=== PATIENT | male | born 1930 | race Caucasian/White ===

== ENCOUNTER 2017-06-09 13:08 | Day surgery (SDC) | payer MEDICARE ==
[~2017-06-09] VITALS: Ht 172.7 cm; Wt 80.7 kg
[2017-06-09 13:31] VITALS: BP 132/83; PULSE 69; TEMP 97.3
[2017-06-09] MEDS ORDERED: PRAVACHOL10 MG PO (13:34)
[2017-06-09] MEDS ORDERED: SYNTHROID0.05 MG/TA PO (13:34)
[2017-06-09] MEDS ORDERED: MULTI VITAMINS1 TAB PO (13:35)
[2017-06-09] MEDS ORDERED: PRIL40 PO (13:35)
[2017-06-09] MEDS ORDERED: HCTZ 25MG TAB25 MG PO (13:35)
[2017-06-09] MEDS ORDERED: OMEGA-3 1000 MG1 CAP PO (13:35)
[2017-06-09 14:40] VITALS: BP 134/96; PULSE 78; TEMP 98.5
[2017-06-09 14:55] VITALS: BP 129/85; PULSE 74
[2017-06-09 15:10] VITALS: BP 144/83; PULSE 72
== END 2017-06-09 15:39 | disposition home or self-care (01) ==
LOC: SDCO 13:08
DX: K22.2 Esophageal obstruction (principal); K44.9 Diaphragmatic hernia without obstruction or gangrene; K21.9 Gastro-esophageal reflux disease without esophagitis; R13.12 Dysphagia, oropharyngeal phase
CPT/HCPCS: OP; C1726; J2250; J3010; J7030